=== PATIENT | female | born 1990 | race African-American/Black ===

== ENCOUNTER 2021-01-09 12:33 | Emergency (ER) | payer OTHER ==
[~2021-01-09] VITALS: Ht 162.6 cm; Wt 68.2 kg
[2021-01-09 12:35] VITALS: BP 124/79
[2021-01-09] MEDS ORDERED: BUPR75 PO (12:42)
[2021-01-09] MEDS ORDERED: ALBU8HFA IH (12:42)
[2021-01-09] MEDS ORDERED: TRAZ-252 PO (12:46)
[2021-01-09] MEDS ORDERED: BUPR-93 PO (12:46)
[2021-01-09 14:36] LABS: APPEARANCE,URINE CLEAR (CLEAR); BILIRUBIN,URINE NEGATIVE (NEGATIVE); GLUCOSE, URINE (UA) NEGATIVE (NEGATIVE); KETONES,URINE NEGATIVE (NEGATIVE); LEUKOCYTE ESTERASE ,URINE NEGATIVE (NEGATIVE); NITRATE,URINE NEGATIVE (NEGATIVE); OCCULT BLOOD,URINE MODERATE (NEGATIVE); PROTEIN,URINE NEGATIVE (NEGATIVE); UROBILINOGEN,URINE 0.2 mg/dL (<=1.0)
[2021-01-09 14:42] LABS: BACTERIA,URINE None Seen /HPF (None Seen); RBC,URINE 0-2 /HPF (0-2); SQUAMOUS EPITHELIAL CELL,UR Rare /LPF (None Seen); WBC,URINE 0-2 /HPF (0-5)
[2021-01-09] MEDS: LIDOCAINE/PF 1% 2 ML VIAL IM ONE ×2 (14:56→15:06)
[2021-01-09] MEDS: CefTRIAXone SODIUM 1 GM/VIAL IM ONE ×2 (14:56→15:06)
[2021-01-09] MEDS: AZITHROMYCIN 500 MG TABLET PO ONE ×2 (14:56→15:06)
== END 2021-01-09 15:07 | disposition home or self-care (01) ==
LOC: EMS 12:36
DX: R30.0 Dysuria (principal)
CPT/HCPCS: 81001; 84703; 87491; 87591; 99283; A9575; J0696; J3490

== ENCOUNTER 2021-02-26 05:18 | Emergency (ER) | payer OTHER ==
[~2021-02-26] VITALS: Ht 160 cm; Wt 75.0 kg
[~2021-02-26 05:18] MED LIST: ALBU8HFA IH; BUPR-93 PO; TRAZ-252 PO
[2021-02-26 05:19] VITALS: BP 111/75
[2021-02-26] MEDS ORDERED: ACETAMINOPHEN 325 MG TABLET PO ONE (05:45)
[2021-02-26] MEDS ORDERED: IBUPROFEN 400 MG TABLET PO ONE (05:45)
== END 2021-02-26 09:34 | disposition home or self-care (01) ==
LOC: EMS 05:20
DX: S92.001A Unspecified fracture of right calcaneus, initial encounter for closed fracture (principal); S93.401A Sprain of unspecified ligament of right ankle, initial encounter; J45.909 Unspecified asthma, uncomplicated; W10.9XXA Fall (on) (from) unspecified stairs and steps, initial encounter; Y93.89 Activity, other specified; Y92.89 Other specified places as the place of occurrence of the external cause; Y99.8 Other external cause status
CPT/HCPCS: 99284; 73610-TC; 73630-TC; Z7502; Z7610